=== PATIENT | female | born 1995 | race Caucasian/White ===

== ENCOUNTER 2017-08-08 21:23 | Emergency (ER) | payer OTHER, BC, MEDICAID | END 2017-08-08 21:44 | disposition home or self-care (01) | LOC: E/R 21:44 | DX: M67.432 Ganglion, left wrist (principal) | CPT/HCPCS: 99283; Z7502 ==

== ENCOUNTER 2018-08-15 22:58 | Emergency (ER) | payer OTHER, BC | END 2018-08-16 05:42 | disposition home or self-care (01) | LOC: FTE 22:58 | DX: J06.9 Acute upper respiratory infection, unspecified (principal); R09.81 Nasal congestion | CPT/HCPCS: 99282; Z7502 ==

== ENCOUNTER 2018-12-05 22:03 | Emergency (ER) | payer OTHER, BC ==
[2018-12-05] MEDS: FLUORESCEIN STRIP RIGHT EYE (23:54)
== END 2018-12-06 01:00 | disposition home or self-care (01) ==
LOC: FTE 22:03
DX: S05.01XA Injury of conjunctiva and corneal abrasion without foreign body, right eye, initial encounter (principal); X58.XXXA Exposure to other specified factors, initial encounter; Y92.9 Unspecified place or not applicable
CPT/HCPCS: 99283; Z7502

== ENCOUNTER 2019-01-26 21:04 | Emergency (ER) | payer OTHER, BC | END 2019-01-27 00:21 | disposition home or self-care (01) | LOC: FTE 01-27 00:21 | DX: S60.821A Blister (nonthermal) of right wrist, initial encounter (principal); X58.XXXA Exposure to other specified factors, initial encounter; Y92.9 Unspecified place or not applicable | CPT/HCPCS: 99283; Z7502 ==